=== PATIENT | male | born 1995 | race Two or more races ===

== ENCOUNTER 2022-03-01 20:21 | Emergency (ER) | payer SELFPAY ==
[~2022-03-01] VITALS: Ht 165.1 cm; Wt 63.6 kg
[2022-03-01 20:25] VITALS: BP 121/68
== END 2022-03-01 22:07 | disposition home or self-care (01) ==
LOC: EMS 20:24
DX: S60.410A Abrasion of right index finger, initial encounter (principal); W54.0XXA Bitten by dog, initial encounter; Y93.89 Activity, other specified; Y92.89 Other specified places as the place of occurrence of the external cause; Y99.8 Other external cause status
CPT/HCPCS: 99283